=== PATIENT | male | born 1945 | race Two or more races ===

== ENCOUNTER → 2024-08-01 | Day surgery (SDC) | payer OTHER ==
[2024-07-20 11:11] LABS: PT Prothrombin Time 11.1 SECONDS (9.4-12.5); Protime INR 1.06
--- NOTE | 2024-07-20 13:51 | RAD REPORT ---
EXAMINATION: TWO VIEW CHEST XR CLINICAL INDICATION: Male, 78 years old. [facility] pre op for day surgery. Hypertension TECHNIQUE: 2 view radiographs of the chest were performed. COMPARISON: 02/23/2023 FINDINGS: The lungs are well inflated and clear. No pneumothorax or sizable effusion. The heart is normal in si ze. Mediastinal contours are unchanged with sequelae of median sternotomy. IMPRESSION: No acute or significant abnormalities.
--- NOTE | 2024-07-25 12:34 | EKG ---
Test Date: 2024-07-20 Test Time: 11:51:27 Work Environment Safety Inspector: TEJINDER MEASUREMENT RESULTS: Intervals: Rate: 73 MA: 170 QRSD: 76 QT: 358 QTc: 394 [place]: P: 78 MA: 170 QRS: 78 T: 62 INTERPRETIVE STATEMENTS: Normal sinus rhythm Normal ECG Compared to ECG 02/23/2023 13:35:41 ST (T wave) deviation no longer present Prolonged QT interval no longer present Electronically Signed On 07-25-24 12:22:28 GEOMATICS PROFESSOR by Riley Lemon
[~2024-08-01] MED LIST: CODEINE 30MG/APAP 300MG TAB PO PRN; EPHEDRINE SULF 50 MG/ML VIAL ONE; FENTANYL CITR 100 MCG/2 ML ONE; LIDOCAINE 2% MPF 5 ML VIAL ONE; ONDANSETRON 4 MG/2 ML VIAL ONE; PHENAZOPYRIDINE 100MG TAB PO ONE; Ringers Lactate 0 ML IV ONE; propofoL 200 MG/20 ML VIAL IV ONE
[2024-08-01] MEDS: NA CHLORIDE 0.9% 1,000 ML ONE (08:19)
[2024-08-01] MEDS: CEFAZOLIN SODIUM 1 GM/VIAL ONE (08:59)
--- NOTE | 2024-08-01 10:38 | P.OP ---
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 Posterior wall of bladder 2. Bladder neck anterior Indication for procedure: The patient was seen and managed in the urology clinic with persistent bothersome LUTS despite maximal medical therapy. He underwent cystoscopic evaluation which revealed the presence of irregular mucosa and erythema in the bladder neck region as well as posteriorly within the bladder. As a result, he was counseled on the potential need for biopsy to rule out underlying malignancy or other inflammatory condition contributing to his LUTS. Procedure note: The patient was consented in the preoperative holding area before being transferred to the operative suite where general anesthesia was induced. He was given Ancef 1 g IV antimicrobial prophylaxis, and pneumoboots were provided for DVT prophylaxis. He was placed in the lithotomy position, padded and secured to the table appropriately, and his genitalia was prepped with Hibiclens before being draped in standard fashion. The case was begun attempting to place a 22 [place] rigid cystoscope, but meatal stenosis prevented this. As a result, I utilized urethral sounds to dilate the meatus and fossa navicularis from 20 [place] to 26 [place] with relative ease. After this, I was able to pass the 22 [place] rigid cystoscope via his urethra and navigate through a point of resistance/stenosis in the bulbar urethra before entering the bladder. I then decompressed his bladder of fluid and urine and surveyed it in its entirety with sterile water used as the irrigant fluid. I noted that in the posterior wall of the bladder and more posterior to the right ureteral orifice, there was a area of irregular heaped up appearing mucosa, and in the bladder neck as it previously been observed, there was also irregular erythematous mucosa. As a result, I utilized the optical biopsy forceps to sample the area in the posterior wall of the bladder first. 3 samples were taken from that area. I then utilized a Bugbee electrode with a cautery setting of 30 to fulgurate the base of the biopsy site and stop the bleeding. I then turned my attention to the bladder neck anteriorly, and again using the optical biopsy forceps, I sampled that area and at least 3 places. The tissue was sent for pathologic analysis, and I fulgurated the base and periphery of each of those lesions biopsy sites as well. I continue the fulguration with the bladder decompressed until completely hemostatic. Once I was satisfied that the biopsy sites were not bleeding and no significant source of hematuria was present, I then decompressed his bladder and removed the cystoscope. I then took the patient out of the lithotomy position, and he was awakened from general anesthesia before being transferred to a stretcher. He was then transferred to the recovery room in good condition. Complications: None Discharge disposition: He will be given an opportunity to void before being discharged from the recovery room, and there after should be scheduled for follow-up in about 1 to 2 weeks to discuss the results of the pathology.
[2024-08-01 13:09] VITALS: BP 117/54; TEMP 97; O2SAT 99
== END | disposition home or self-care (01) ==
LOC: OR 07:43
PROVIDERS: ATTEND Urology
PROC: 0T7D8ZZ Dilation of Urethra, Via Natural or Artificial Opening Endoscopic (ICD-10-PCS; 2024-08-01)
PROC: 0TBB8ZX Excision of Bladder, Via Natural or Artificial Opening Endoscopic, Diagnostic (ICD-10-PCS; principal; 2024-08-01 09:45)
DX: N40.1 Benign prostatic hyperplasia with lower urinary tract symptoms (principal); N32.9 Bladder disorder, unspecified; N32.81 Overactive bladder; R10.2 Pelvic and perineal pain; N13.8 Other obstructive and reflux uropathy; N35.911 Unspecified urethral stricture, male, meatal
CPT/HCPCS: 93005; 87086; 36415; 85610; 82947 ×2; 88305; 71046; 52204; 52281; J2704; J2003; J3010 ×2; J2405; J7030; J0690; 87088; J7120